=== PATIENT | male | born 1945 | race Caucasian/White ===

== ENCOUNTER → 2017-02-08 | Outpatient (CLI) | payer OTHER, BC ==
[~2017-02-08] MED LIST: ASPIRIN 81M81 MG/TA2 PO; DUO-KAPS1 CAP PO; EPA/GLA1 SGL PO; GLUCOSAMINE & C1 CA1 PO
== END ==
LOC: COL.RAD 06:25
DX: R31.0 Gross hematuria (principal); N28.1 Cyst of kidney, acquired; N32.9 Bladder disorder, unspecified
CPT/HCPCS: Q9967

== ENCOUNTER → 2019-02-20 | Day surgery (SDC) | payer MEDICARE, BC ==
[~2019-02-20] VITALS: Ht 182.9 cm; Wt 84.1 kg
[~2019-02-20] MED LIST changes: +B COMPLEX #11 TAB PO; +MAGNESIUM250 M1 PO; +MULTI VITAMINS1 TAB PO; +collagen PO; +tumeric PO
[2019-02-20 07:44] VITALS: BP 136/78; PULSE 71; TEMP 97.9
[2019-02-20 09:20] VITALS: BP 117/73; PULSE 70; TEMP 98.3
--- NOTE | 2019-02-20 09:20 | NUR ---
Patient arrives back to [facility] alert, denies pain or nausea. Patient monitor applied, vitals stable. Patient's spouse brought to bedside, and patient given muffin and juice.
[2019-02-20 09:35] VITALS: BP 111/74; PULSE 80
--- NOTE | 2019-02-20 09:35 | NUR ---
Patien tolerated muffin and juice without any nausea, denies pain. Vitals stable.
[2019-02-20 09:50] VITALS: BP 105/70; PULSE 70
--- NOTE | 2019-02-20 09:50 | NUR ---
Patient waiting comfortably in chair for Dr Aly to go over results.
--- NOTE | 2019-02-20 10:10 | NUR ---
Dr Aly into see patient at this time.
--- NOTE | 2019-02-20 10:15 | NUR ---
Dismissal instructions gone over with patient and patient's spouse. Both verbalize understanding and all questions answered.
[2019-02-20 10:43] VITALS: BP 112/75; PULSE 68
== END ==
LOC: SDCO 07:23
DX: Z12.11 Encounter for screening for malignant neoplasm of colon (principal); K64.0 First degree hemorrhoids; Z86.010 Personal history of colon polyps; Z96.641 Presence of right artificial hip joint; Z88.0 Allergy status to penicillin; Z80.0 Family history of malignant neoplasm of digestive organs
CPT/HCPCS: J2250; J3010; J7030